=== PATIENT | female | born 1930 | race Hispanic/Latino ===

== ENCOUNTER 2017-05-19 10:06 | Outpatient (CLI) | payer MEDICARE ==
--- NOTE | 2017-05-19 10:53 | Mammography Report ---
BONE DEXA:05/19/17 10:06:00 CLINICAL: Postmenopausal.Long-term steroid use. No comparison. TECHNIQUE: Two site bone DEXA performed on an Hologic scanner. FINDINGS: The average BMD of the lumbar spine L1-L4 is 1.110g/cm squared with a T-score of +0.6. The average BMD of the left hip is 0.36g/cm squared with a T-score of by 0.9. The femoral neck BMD is 0.627g/cm squared with a T score of -2.0. Z scores are not calculated since age is greater than 80 years. IMPRESSION: 1. WHO classification: Normal with average fracture risk based on lumbar spine measurements. 2. WHO classification: Osteopenia with increased fracture risk based on left femoral neck measurements. RECOMMENDATION: Clinical correlation and routine screening. DEFINITIONS: BMD = Bone Mineral Density T-score = BMD related to mean peak bone mass of young adult (mean expressed in Standard Deviation) Z-score = Age matched BMD expressed in SD World Health Organization (WHO) Diagnostic Criteria Normal T-score > -1 SD Osteopenia T-score between -1 and -2.4 SD Osteoporosis T-score -2.5 SD or below NOTE: BMD is not the only risk factor for fracture. One should also consider factors such as the patient's age, risk of falling, previous osteoporotic fracture, family history of osteoporotic fractures, current smoker, and low body weight. Z-scores are not calculated if >80 years of age.
== END 2017-05-19 10:07 | disposition home or self-care (01) ==
LOC: SPVWC 10:06
PROVIDERS: ATTEND Internal Medicine Hematology & Oncology
DX: M85.88 Other specified disorders of bone density and structure, other site (principal); D80.1 Nonfamilial hypogammaglobulinemia; D47.2 Monoclonal gammopathy; C90.00 Multiple myeloma not having achieved remission; Z78.0 Asymptomatic menopausal state; Z79.52 Long term (current) use of systemic steroids
CPT/HCPCS: 77080

== ENCOUNTER 2018-06-12 10:53 | Outpatient (CLI) | payer MEDICARE ==
--- NOTE | 2018-06-12 13:58 | XRay Report ---
XRAY CHEST TWO VIEWS: 06/12/18 10:53:00 CLINICAL: Cough. COMPARISON: 03/18/13 FINDINGS: The right hemidiaphragm is greatly elevated but is only slightly more elevated than on the previous exam. The lungs are clear. No airspace disease or pleural effusion. A right [id number] tip is in the right atrium. The heart is large but pulmonary vessels are normal. Calcification of the thoracic aorta. Degenerative change in the thoracic spine. IMPRESSION: Cardiomegaly but no CHF. Chronic elevation of the right hemidiaphragm.No pneumonia.
== END 2018-06-12 10:54 | disposition home or self-care (01) ==
LOC: SPVIMAG 10:53
PROVIDERS: ATTEND Internal Medicine Hematology & Oncology
DX: I51.7 Cardiomegaly (principal); M47.814 Spondylosis without myelopathy or radiculopathy, thoracic region; D47.2 Monoclonal gammopathy; D80.1 Nonfamilial hypogammaglobulinemia; C90.00 Multiple myeloma not having achieved remission
CPT/HCPCS: 71046